=== PATIENT | male | born 1975 | race Caucasian/White ===

== ENCOUNTER 2017-03-23 08:57 | Observation (INO) | payer BC ==
[~2017-03-23] VITALS: Ht 180.3 cm; Wt 107.7 kg
[2017-03-23] MEDS ORDERED: ASPI81TA85 PO (09:04)
[2017-03-23] MEDS: NS 1,000 ML IV SCH ×2 (09:24→19:13)
[2017-03-23 09:34] LABS: BASO # 0.1 10^3/uL (0.0-0.2); BASO % 0.5 % (0.0-1.0); EOS % 0.2 % (0.0-3.0); IMMATURE GRANULOCYTE % 0.8 % (0-0); LYMPH # 1.6 10^3/uL (1.5-4.5); LYMPH % 11.9 % (24.0-44.0); MEAN CORPUSCULAR HEMOGLOBIN 28.7 pg (27.0-33.0); MEAN CORPUSCULAR HGB CONC 34.1 g/dl (32.0-36.5); MEAN CORPUSCULAR VOLUME 84.3 fl (80.0-96.0); MONO # 0.7 10^3/uL (0.0-0.8); MONO % 5.5 % (0.0-5.0); NEUTROPHILS # 10.6 10^3/uL (1.8-7.7); NEUTROPHILS % 81.1 % (36.0-66.0); PLATELET COUNT, AUTOMATED 391 10^3/uL (150-450); RED CELL DISTRIBUTION WIDTH 12.2 % (11.5-14.5)
[2017-03-23] MEDS ORDERED: MORPHINE 4 MG/ML 1ML SYRINGE IV ONE (09:45)
[2017-03-23] MEDS ORDERED: ONDANSETRON 4MG/2ML VIAL (J2405) IV ONE (09:45)
[2017-03-23 09:49] LABS: INR 0.93
[2017-03-23 10:02] LABS: ALKALINE PHOSPHATASE 108 U/L (45-117); ALT/SGPT 37 U/L (12-78); ANION GAP 14 MEQ/L (8-16); AST/SGOT 14 U/L (7-37); BILIRUBIN,DIRECT 0.2 MG/DL (0.0-0.2); BILIRUBIN,TOTAL 0.7 MG/DL (0.2-1.0); BLOOD UREA NITROGEN 14 MG/DL (7-18); CALCIUM LEVEL 9.9 MG/DL (8.5-10.1); CARBON DIOXIDE LEVEL 22 MEQ/L (21-32); CHLORIDE LEVEL 100 MEQ/L (98-107); CREATININE FOR GFR 0.94 MG/DL (0.70-1.30); GLOMERULAR FILTRATION RATE > 60.0 (>60); GLUCOSE, FASTING 180 MG/DL (70-105); POTASSIUM SERUM 3.7 MEQ/L (3.5-5.1); SODIUM LEVEL 136 MEQ/L (136-145); TOTAL PROTEIN 9.2 GM/DL (6.4-8.2)
[2017-03-23 10:03] LABS: ALBUMIN 4.7 GM/DL (3.2-5.2); ALBUMIN/GLOBULIN RATIO 1.04 (1.00-1.93)
--- NOTE | 2017-03-23 10:04 | REP ---
Portable chest x-ray: Single view. History: Abdomen pain. Comparison study: March 31, 2011. Findings: There is some linear pleuroparenchymal fibrosis in the left base unchanged. The right lateral pleural angle is excluded from the imaging field of view. Lung cheek are otherwise clear. Heart is not enlarged. Pulmonary vasculature is not increased. EKG monitoring electrodes overlie the chest. No bony abnormality is seen. Impression: Pleuroparenchymal fibrosis left base. Otherwise no acute disease. Signed by Edwin Pride MD 03/23/2017 03:57 P
[2017-03-23] MEDS ORDERED: ISOVUE-370 76% 100ML VIAL (Q9967) As Ordered ONE (10:28)
--- NOTE | 2017-03-23 11:44 | REP ---
CT chest with IV but without oral contrast: History: Abdomen pain. CT contrast dose: 100 ml of Isovue [address] findings: Digital preliminary deputy court radiograph demonstrates an unremarkable bowel gas pattern. There is a calcific opacity projecting at the lower pole of the right kidney. Axial CT images demonstrate moderate linear fibrotic changes in the left base involving the lingula and left lower lobe. No pleural effusion is seen. The liver and the spleen are normal in size, homogeneous in texture. There is a tiny accessory splenule. No adrenal lesion is seen on either side. The pancreas is unremarkable. No gallbladder abnormality is seen. Coronary artery stent material is visible along the left heart border. There are two intrarenal calculi in the lower pole of the right kidney. The largest of these is 6 mm. No hydronephrosis is seen. No intrarenal calculus is noted on the left. There is a small cyst in the left mid kidney posteromedially. Normal caliber aorta. No retroperitoneal mass or adenopathy is seen. Urinary bladder, seminal vesicles, and prostate gland are unremarkable. Small and large intestinal bowel loops are normal in the abdomen and pelvis. There are multiple foci of slightly opaque ingested material in the small and large intestine, question antacids. No bony destructive lesion is seen. No abdominal wall defect is observed. Normal appendix is seen at the lower edge of the liver. Impression: 1. Intrarenal nephrolithiasis lower pole right kidney without hydronephrosis. 2. No other significant abdominal abnormality. Normal appendix seen. Signed by Edwin Pride MD 03/23/2017 03:59 P
[2017-03-23] MEDS ORDERED: SODIUM CHLORIDE 0.9% 1000 ML IV ONE (12:00)
[2017-03-23] MEDS ORDERED: ATOR40TA75 PO (12:16)
[2017-03-23] MEDS ORDERED: FLUO20CA19 PO (12:16)
[2017-03-23] MEDS: MORPHINE 4 MG/ML 1ML SYRINGE IV PRN (12:17)
[2017-03-23] MEDS ORDERED: BRIL90TA PO (12:22)
[2017-03-23] MEDS ORDERED: ACETAMINOPHEN TAB 650MG DOSE (2X325MG) PO PRN (12:30)
[2017-03-23] MEDS ORDERED: NORCO, ANEXSIA 5/325MG TABLET (HYDROcodone/ACETAMINOPHEN) PO PRN (12:30)
[2017-03-23] MEDS ORDERED: ONDANSETRON 4MG/2ML VIAL (J2405) IV PRN (12:30)
[2017-03-23] MEDS ORDERED: KETOROLAC 30 MG/ML VIAL (J1885) IV PRN (12:30)
[2017-03-23] MEDS ORDERED: ATOR80TA59 PO (12:33)
[2017-03-23] MEDS ORDERED: MORP-38 PO (12:44)
[2017-03-23] MEDS ORDERED: ZOLP10TA2 PO (12:44)
[2017-03-23] MEDS ORDERED: HYDR-3719 PO (12:44)
--- NOTE | 2017-03-23 13:12 | REP ---
RIGHT UPPER QUADRANT ULTRASOUND: Real-time sonographic evaluation of the right upper quadrant performed. The study is somewhat limited due to patient body habitus and bowel gas. The gallbladder demonstrates no evidence of intraluminal sludge or calculi, wall thickening or pericholecystic fluid. There is no intrahepatic or extrahepatic biliary dilatation, common bile duct measuring 4 mm in diameter. Liver and pancreas demonstrate no gross abnormality. Right kidney demonstrates no hydronephrosis with normal size at 12 cm in length. A 6 mm intrarenal calculus is seen inferiorly in the right renal collecting system. IMPRESSION: Right renal calculus. Otherwise negative right upper quadrant ultrasound. Signed by Del Land MD 03/24/2017 09:02 A
[2017-03-23] MEDS: PANTOPRAZOLE 40MG INJ (PROTONIX) (C9113) IV SCH (13:52)
[2017-03-23] MEDS: LR 1,000 ML IV SCH ×2 (13:52→21:37)
--- NOTE | 2017-03-23 14:01 | HPEPDOC ---
General Surgery H&P Date of Admission Mar 23, 2017 Attending Physician: SAJAN VARGHESE MD History and Physical CHIEF COMPLAINT: abdominal pain HISTORY OF PRESENT ILLNESS: Patient presents to the ER with sudden onset of periumbilical pain radiating to the left side of his abdomen that woke him up at approximately 3 morning. This is associated with multiple episodes of vomiting. Patient also was able to have one normal bowel movement. Denies any bleeding with bowel movements. Pain persisted throughout the morning prompting the visit to the emergency room. Patient denies any prodromal symptoms tonight prior. He ate regular daily at 8:30 in the evening and slept at about 11:30 last night feeling his normal self. He denies any sick contacts. He denies any prior episodes of similar symptoms. He reports he has had kidney stones passed but pain felt different. Patient is also not able to get into comfortable position during the episode. ALLERGIES: Please see below. HOME MEDICATIONS: Please see below. PAST MEDICAL HISTORY: 1. Coronary artery disease status post cardiac stenting 02/2017 2. Diabetes 3. Back pain/sciatica 4. Hypercholesterolemia 5. History of diverticulitis 6. History of colon polyps. 7. History of kidney stones PAST SURGICAL HISTORY: 1. Multiple colonoscopies with polypectomy last one was in 2013 2. Coronary angiogram with cardiac stenting (2016) PERSONAL/SOCIAL HISTORY: Denies smoking, alcohol use, or recreational drug use. REVIEW OF SYSTEMS: GENERAL: Denies chills, fatigue, fever, weight gain and weight loss. Patient was in his normal health prior to this episode HEENT: Denies blurred vision and double vision. Denies ear symptoms. Denies hoarseness. NECK: Denies any neck pain. CARDIOVASCULAR: Denies chest pain and palpitations. MUSCULOSKELETAL: Denies arthralgias, back pain and thrombophlebitis. SKIN: Denies rash. NEUROLOGIC: Denies headache, stroke and transient ischemic attack. PSYCHIATRIC: Denies anxiety and depression. ENDOCRINE: Denies thyroid disease. HEMATOLOGY/ONCOLOGY: Denies any bleeding or clotting disorder. HEART: Denies any chest pains, palpitations, paroxysmal dyspnea, orthopnea. Recent cardiac catheterization PULMONARY: Denies chronic cough, dyspnea and wheezing. GASTROINTESTINAL: Denies rectal bleeding, family history of colon cancer, constipation, diarrhea, dysphagia, heartburn and jaundice. GENITOURINARY: Denies dysuria, frequency, hematuria and nocturia. ENDOCRINE: Denies polydipsia, polyphagia, polyuria, heat or cold intolerance. INFECTIOUS: Denies any recent upper respiratory tract infection, UTI, need for use of antibiotics. NUTRITION: Reports good appetite. PHYSICAL EXAMINATION: VITAL SIGNS: Please see below. GENERAL APPEARANCE: Patient seen at bedside, appears comfortable. Awake, alert, oriented. HEENT: Normocephalic, atraumatic. [place] palpebral conjunctivae. Anicteric sclerae. Lips moist. CHEST: No chest wall abnormalities. Normal respiratory motion/effort. NECK: Supple. No thyromegaly. No lymphadenopathies. LUNGS: Lung sounds are clear to auscultation bilaterally. No wheezing appreciated. HEART: No chest wall abnormalities. Heart rate and rhythm are regular with no murmurs. ABDOMEN: Abdomen is obese, soft, nondistended. No surgical scars. No umbilical or groin herniation. Nontender on palpation throughout the whole of the abdomen EXTREMITIES: Extremities have no deformities. No edema identified. NEUROLOGICAL: . ANCILLARIES: . LABORATORY DATA: Please see below. MICROBIOLOGY: Please see below. IMAGING: CT abdomen and pelvis 1. Intrarenal nephrolithiasis lower pole right kidney without hydronephrosis. 2. No other significant abdominal abnormality. Normal appendix seen. Right Upper Quadrant US Right renal calculus. Otherwise negative right upper quadrant ultrasound. IMPRESSION AND PLAN: Abdominal Pain with slight lactic acidemia possiblysecondary to dehydration Etiology of the pain right now is unclear. Imaging studies and clinical exam non focal. ED doctor was concerned about level of lactic acidemia. He did have one episode of vomiting early this morning. Given he has significant cardiovascular risk factors, concern is for early bowel ischemia. I reviewed the CT which was done with IV contrast and the celiac , SMA vessels are intact without any evidence of thrombus or emboli. I will admit him for observationa nd continue IVF hydration for now. I will repeat the labs at 4 pm and if this has improved will start him on a diet. Vital Signs Vital Signs Date Time Temp Pulse Resp B/P (MAP) Pulse Ox O2 Delivery O2 Flow Rate FiO2 03/23/17 13:52 18 03/23/17 13:32 72 03/23/17 12:32 156/81 (106) 03/23/17 12:17 97.7 97 Room Air I&Os I&O- Last 24 Hours up to 6 AM 03/24/17 06:01 Intake Total 300 ml Balance 300 ml Laboratory Data Labs 24H Laboratory Tests 2 03/23/17 09:21: Immature Granulocyte % (Auto) 0.8H, White Blood Count 13.0H, Red Blood Count 5.67, Hemoglobin 16.3, Hematocrit 47.8, Mean Corpuscular Volume 84.3, Mean Corpuscular Hemoglobin 28.7, Mean Corpuscular Hemoglobin Concent 34.1, Red Cell Distribution Width 12.2, Platelet Count 391, Neutrophils (%) (Auto) 81.1H, Lymphocytes (%) (Auto) 11.9L, Monocytes (%) (Auto) 5.5H, Eosinophils (%) (Auto) 0.2, Basophils (%) (Auto) 0.5, Neutrophils # (Auto) 10.6H, Lymphocytes # (Auto) 1.6, Monocytes # (Auto) 0.7, Eosinophils # (Auto) 0.0, Basophils # (Auto) 0.1, Immature Granulocyte # (Auto) 0.1H, Nucleated Red Blood Cells % (auto) 0.0, Prothrombin Time 12.5, Prothromb Time International Ratio 0.93, Anion Gap 14, Glomerular Filtration Rate > 60.0, Lactic Acid Level 3.8*H, Calcium Level 9.9, Aspartate Amino Transf (AST/SGOT) 14, Alanine Aminotransferase (ALT/SGPT) 37, Alkaline Phosphatase 108, Total Bilirubin 0.7, Direct Bilirubin 0.2, Total Creatine Kinase 72, Creatine Kinase MB 1.0, Creatine Kinase MB Relative Index 1.38, Troponin I < 0.02, Total Protein 9.2H, Albumin 4.7, Albumin/Globulin Ratio 1.04, Lipase 253 03/23/17 11:07: Bedside Glucose (Misc Panel) 123H CBC/BMP Laboratory Tests 03/23/17 09:21 Red Blood Count 5.67, Mean Corpuscular Volume 84.3, Mean Corpuscular Hemoglobin 28.7, Mean Corpuscular Hemoglobin Concent 34.1, Red Cell Distribution Width 12.2 , Neutrophils (%) (Auto) 81.1 H, Lymphocytes (%) (Auto) 11.9 L, Monocytes (%) ( Auto) 5.5 H, Eosinophils (%) (Auto) 0.2, Basophils (%) (Auto) 0.5, Neutrophils # (Auto) 10.6 H, Lymphocytes # (Auto) 1.6, Monocytes # (Auto) 0.7, Eosinophils # (Auto) 0.0, Basophils # (Auto) 0.1 Home Medications Scheduled Aspirin (Aspir-81) 81 Mg Tab, 81 MG PO DAILY, (Reported) Atorvastatin Calcium (Atorvastatin Calcium) 80 Mg Tab, 80 MG PO QPM, (Reported) Fluoxetine Hcl (Fluoxetine HCl) 20 Mg Cap, 20 MG PO QHS, (Reported) Morphine Sulfate (Morphine Sulfate ER) 15 Mg Tab, 15 MG PO BID, (Reported) Ticagrelor Base (Brilinta) 90 Mg Tab, 90 MG PO BID, (Reported) Zolpidem Tartrate (Zolpidem Tartrate) 10 Mg Tab, 10 MG PO QHS, (Reported) Scheduled PRN Acetaminophen/Hydrocodone (Hydrocodone/Acetaminophen 10-325 mg) 1 Tab Tab, 1 TAB PO Q6H PRN for PAIN, (Reported) Allergies Coded Allergies: No Known Allergies (Unverified , 03/23/17) SAJAN VARGHESE MD Mar 23, 2017 14:01
[2017-03-23] MEDS: TICAGRELOR 90 MG TABLET (BRILINTA) PO SCH ×2 (15:35→21:37)
[2017-03-23 16:07] LABS: BASO % 0.3 % (0.0-1.0); EOS % 0.2 % (0.0-3.0); IMMATURE GRANULOCYTE % 0.3 % (0-0); LYMPH # 2.5 10^3/uL (1.5-4.5); LYMPH % 19.8 % (24.0-44.0); MEAN CORPUSCULAR HEMOGLOBIN 29.3 pg (27.0-33.0); MEAN CORPUSCULAR HGB CONC 33.6 g/dl (32.0-36.5); MONO # 1.2 10^3/uL (0.0-0.8); MONO % 9.2 % (0.0-5.0); NEUTROPHILS # 8.8 10^3/uL (1.8-7.7); NEUTROPHILS % 70.2 % (36.0-66.0); PLATELET COUNT, AUTOMATED 334 10^3/uL (150-450); RED CELL DISTRIBUTION WIDTH 12.3 % (11.5-14.5); WHITE BLOOD COUNT 12.5 10^3/uL (4.0-10.0)
[2017-03-23 16:26] LABS: ALBUMIN 3.7 GM/DL (3.2-5.2); ALBUMIN/GLOBULIN RATIO 1.28 (1.00-1.93); ALKALINE PHOSPHATASE 85 U/L (45-117); ALT/SGPT 29 U/L (12-78); ANION GAP 9 MEQ/L (8-16); AST/SGOT 11 U/L (7-37); BILIRUBIN,TOTAL 0.5 MG/DL (0.2-1.0); BLOOD UREA NITROGEN 9 MG/DL (7-18); CALCIUM LEVEL 8.4 MG/DL (8.5-10.1); CARBON DIOXIDE LEVEL 26 MEQ/L (21-32); CHLORIDE LEVEL 107 MEQ/L (98-107); CREATININE FOR GFR 0.65 MG/DL (0.70-1.30); GLOMERULAR FILTRATION RATE > 60.0 (>60); GLUCOSE, FASTING 113 MG/DL (70-105); POTASSIUM SERUM 4.1 MEQ/L (3.5-5.1); SODIUM LEVEL 142 MEQ/L (136-145); TOTAL PROTEIN 6.6 GM/DL (6.4-8.2)
[2017-03-23 16:30] VITALS: BP 168/88
[2017-03-23] MEDS ORDERED: zolPIDEM TARTRATE 5 MG TAB PO PRN (17:15)
[2017-03-23 20:00] VITALS: BP 152/83
[2017-03-23] MEDS ORDERED: ATORVASTATIN 20 MG TAB PO SCH (21:00)
[2017-03-23] MEDS ORDERED: FLUoxetine 20 MG CAP PO SCH (21:00)
--- NOTE | 2017-03-23 21:15 | ECGEPIP ---
Stationary ECG Study [facility] - ED Test Date: 2017-03-23 Pat Name: MICHAELA HANKINS Department: Room: - Gender: M Cleaning Team Member: sol : 1975 Requested By: Sejal Reynaga Order Number: [id number] Reading MD: Sejal Reynaga Measurements Intervals [place] Rate: 80 P: 42 [place]: 138 QRS: -28 QRSD: 101 T: 12 QT: 373 QTc: 433 Interpretive Statements SINUS RHYTHM BORDERLINE LEFT AXIS DEVIATION ?PRIOR INFERIOR INFARCT BASELINE ARTIFACT LIMITS INTERPRETATION Electronically Signed On 03-23-2017 21:15:13 EST by Sejal Reynaga
[2017-03-24] VITALS: BP 170/87
[2017-03-24] MEDS: NORCO, ANEXSIA 5/325MG TABLET (HYDROcodone/ACETAMINOPHEN) PO PRN ×2 (04:18→10:20)
[2017-03-24] MEDS: LR 1,000 ML IV SCH ×2 (04:18→11:34)
[2017-03-24 05:00] VITALS: BP 161/82
[2017-03-24] MEDS: MORPHINE 4 MG/ML 1ML SYRINGE IV PRN (05:02)
[2017-03-24] MEDS: NS 1,000 ML IV SCH (05:13)
[2017-03-24 08:00] VITALS: BP 152/90
[2017-03-24 08:31] LABS: BASO # 0.1 10^3/uL (0.0-0.2); BASO % 0.4 % (0.0-1.0); EOS # 0.1 10^3/uL (0.0-0.50); EOS % 0.8 % (0.0-3.0); IMMATURE GRANULOCYTE % 0.2 % (0-0); LYMPH # 2.9 10^3/uL (1.5-4.5); MEAN CORPUSCULAR HEMOGLOBIN 29.3 pg (27.0-33.0); MEAN CORPUSCULAR HGB CONC 33.4 g/dl (32.0-36.5); MEAN CORPUSCULAR VOLUME 87.6 fl (80.0-96.0); MONO # 1.1 10^3/uL (0.0-0.8); MONO % 9.5 % (0.0-5.0); NEUTROPHILS # 7.4 10^3/uL (1.8-7.7); NEUTROPHILS % 64.1 % (36.0-66.0); PLATELET COUNT, AUTOMATED 306 10^3/uL (150-450); RED CELL DISTRIBUTION WIDTH 12.4 % (11.5-14.5); WHITE BLOOD COUNT 11.6 10^3/uL (4.0-10.0)
[2017-03-24] MEDS: PANTOPRAZOLE 40MG INJ (PROTONIX) (C9113) IV SCH (08:36)
[2017-03-24 08:56] LABS: ALBUMIN 3.3 GM/DL (3.2-5.2); ALKALINE PHOSPHATASE 82 U/L (45-117); ALT/SGPT 26 U/L (12-78); ANION GAP 6 MEQ/L (8-16); AST/SGOT 12 U/L (7-37); BILIRUBIN,TOTAL 0.4 MG/DL (0.2-1.0); BLOOD UREA NITROGEN 7 MG/DL (7-18); CALCIUM LEVEL 8.3 MG/DL (8.5-10.1); CARBON DIOXIDE LEVEL 26 MEQ/L (21-32); CHLORIDE LEVEL 107 MEQ/L (98-107); CREATININE FOR GFR 0.61 MG/DL (0.70-1.30); GLOMERULAR FILTRATION RATE > 60.0 (>60); GLUCOSE, FASTING 124 MG/DL (70-105); POTASSIUM SERUM 4.4 MEQ/L (3.5-5.1); SODIUM LEVEL 139 MEQ/L (136-145); TOTAL PROTEIN 6.3 GM/DL (6.4-8.2)
[2017-03-24] MEDS ORDERED: JANU100T PO (09:59)
[2017-03-24] MEDS ORDERED: METF-415 PO (09:59)
[2017-03-24] MEDS: TICAGRELOR 90 MG TABLET (BRILINTA) PO SCH (10:19)
[2017-03-24 12:00] VITALS: BP 138/79
== END 2017-03-24 12:30 | disposition home or self-care (01) ==
LOC: M ED 08:57 → M ED INP 12:26 → M PED 16:30
PROVIDERS: ADMIT Surgery; ATTEND Surgery
DX: R10.9 Unspecified abdominal pain (principal); I25.10 Atherosclerotic heart disease of native coronary artery without angina pectoris; E11.9 Type 2 diabetes mellitus without complications; M54.30 Sciatica, unspecified side; E78.00 Pure hypercholesterolemia, unspecified; K57.30 Diverticulosis of large intestine without perforation or abscess without bleeding; Z86.010 Personal history of colon polyps; Z87.442 Personal history of urinary calculi; Z98.61 Coronary angioplasty status; Z79.82 Long term (current) use of aspirin; Z79.899 Other long term (current) drug therapy
CPT/HCPCS: 36415; 71010; 74177; 76705; 80053; 82550; 82553; 83605; 83690; 85025; 85610; 86140; 86850; 93005; 93041; 96374; 96375; 96376; 99285; C9113; J1885; J2405; Q9967

== ENCOUNTER → 2019-08-10 | Outpatient (CLI) | payer BC ==
[~2019-08-10] MED LIST: ASPI81TA85 PO; ATOR40TA75 PO; ATOR80TA59 PO; BRIL90TA PO; FLUO20CA22 PO; HYDR-3719 PO; JANU100T PO; METF-415 PO; MORP-69 PO; ZOLP10TA2 PO
[2019-08-10 14:21] LABS: ALBUMIN 3.6 GM/DL (3.2-5.2); ALT/SGPT 26 U/L (12-78); BILIRUBIN,TOTAL 0.3 MG/DL (0.2-1.0); BLOOD UREA NITROGEN 7 MG/DL (7-18); CALCIUM LEVEL 9.4 MG/DL (8.5-10.1); CARBON DIOXIDE LEVEL 27 MEQ/L (21-32); CHLORIDE LEVEL 106 MEQ/L (98-107); CHOLESTEROL LEVEL 123 MG/DL (<200); CHOLESTEROL RISK RATIO 3.843 (<5); CREATININE FOR GFR 0.62 MG/DL (0.70-1.30); GLOMERULAR FILTRATION RATE > 60.0 (>60); GLUCOSE, FASTING 156 MG/DL (70-100); HDL CHOLESTEROL 32 MG/DL (>40); LDL CHOLESTEROL 62 MG/DL (<100); NON-HDL-C 91 MG/DL; POTASSIUM SERUM 4.9 MEQ/L (3.5-5.1); SODIUM LEVEL 140 MEQ/L (136-145); TOTAL PROTEIN 6.5 GM/DL (6.4-8.2); TRIGLYCERIDES LEVEL 147 MG/DL (<150)
[2019-08-10 14:35] LABS: HEMOGLOBIN A1c 10.6 %
[2019-08-10 14:39] LABS: BASO # 0.1 10^3/uL (0.0-0.2); EOS # 0.1 10^3/uL (0.0-0.5); EOS % 1.5 % (0.0-3.0); HEMATOCRIT 47.3 % (42.0-52.0); HEMOGLOBIN 15.1 g/dl (13.5-17.5); LYMPH # 2.3 10^3/uL (1.5-5.0); LYMPH % 25.8 % (24.0-44.0); MEAN CORPUSCULAR HGB CONC 31.9 g/dl (32.0-36.5); MEAN CORPUSCULAR VOLUME 90.8 fl (80.0-96.0); MONO # 0.7 10^3/uL (0.0-0.8); MONO % 8.3 % (0.0-5.0); NEUTROPHILS # 5.5 10^3/uL (1.5-8.5); NEUTROPHILS % 63.1 % (36.0-66.0); PLATELET COUNT, AUTOMATED 295 10^3/uL (150-450); RED BLOOD COUNT 5.21 10^6/uL (4.30-6.10); WHITE BLOOD COUNT 8.8 10^3/uL (4.0-10.0)
== END ==
LOC: M WUC 10:46
DX: E11.65 Type 2 diabetes mellitus with hyperglycemia (principal); D72.829 Elevated white blood cell count, unspecified

== ENCOUNTER → 2019-11-22 | Emergency (ER) | payer BC ==
[~2019-11-22] MED LIST changes: -ASPI81TA85 PO; +ASPI81TA86 PO; +ASPIRIN 325 MG TAB As Ordered ONE; +ASPIRIN 325 MG TAB ONE; +HYDR-3713 PO; +JARD1TAB PO; +METH20TA29 PO; +NORC1TAB7 PO; +REGL10TA6 PO
--- NOTE | 2019-12-25 15:36 | ECGEPIP ---
[facility] - ED Test Date: 2019-11-22 Pat Name: MICHAELA HANKINS Department: Room: - Gender: Male Customer Relationship Specialist: tomasz : 1975 Requested By: FRAN Pinzon Order Number: [id number] Reading MD: Sejal Reynaga Measurements Intervals [place] Rate: 61 P: 16 PA: 155 QRS: -17 QRSD: 101 T: -5 QT: 403 QTc: 407 Interpretive Statements SINUS RHYTHM NORMAL ECG PROBABLE PRIOR INFERIOR INFARCT SEE SCANNED DOWNTIME REPORT
--- NOTE | 2019-12-29 07:59 | ECGEPIP ---
SINUS RHYTHM MARKED LEFT AXIS DEVIATION NO PREVIOUS TO COMPARE SEE SCANNED DOWNTIME REPORT MTDD
[2020-01-09 09:03] LABS: D-DIMER QUANT < 270 ng/ml (<500); INR 0.99; PARTIAL THROMBOPLASTIN TIME 28.3 SECONDS (24.2-38.5); PROTHROMBIN TIME 13.3 SECONDS (12.5-14.3)
[2020-01-10 20:40] LABS: BASO # 0.1 10^3/uL (0.0-0.2); BASO % 0.7 % (0.0-1.0); EOS # 0.2 10^3/uL (0.0-0.5); EOS % 1.3 % (0.0-3.0); HEMATOCRIT 47.6 % (42.0-52.0); HEMOGLOBIN 15.4 g/dl (13.5-17.5); LYMPH # 3.8 10^3/uL (1.5-5.0); LYMPH % 30.1 % (24.0-44.0); MEAN CORPUSCULAR HEMOGLOBIN 28.5 pg (27.0-33.0); MEAN CORPUSCULAR HGB CONC 32.4 g/dl (32.0-36.5); MONO # 0.9 10^3/uL (0.0-0.8); MONO % 7.5 % (0.0-5.0); NEUTROPHILS # 7.6 10^3/uL (1.5-8.5); NEUTROPHILS % 60.1 % (36.0-66.0); PLATELET COUNT, AUTOMATED 292 10^3/uL (150-450); RED BLOOD COUNT 5.41 10^6/uL (4.30-6.10); WHITE BLOOD COUNT 12.6 10^3/uL (4.0-10.0)
[2020-02-14 04:45] LABS: ALBUMIN 3.9 GM/DL (3.2-5.2); ALT/SGPT 27 U/L (12-78); BILIRUBIN,TOTAL 0.4 MG/DL (0.2-1.0); BLOOD UREA NITROGEN 9 MG/DL (7-18); CALCIUM LEVEL 9.2 MG/DL (8.5-10.1); CARBON DIOXIDE LEVEL 30 MEQ/L (21-32); CHLORIDE LEVEL 104 MEQ/L (98-107); CK-MB VALUE MASS < 1.0 NG/ML (<3.6); CPK CREATINE PHOSPHOKINASE 65 U/L (39-308); GLOMERULAR FILTRATION RATE > 60.0 (>60); GLUCOSE, FASTING 173 MG/DL (70-100); MAGNESIUM LEVEL 2.2 MG/DL (1.8-2.4); MB/CK RELATIVE INDEX 1.54 (< OR =4); POTASSIUM SERUM 4.2 MEQ/L (3.5-5.1); SODIUM LEVEL 138 MEQ/L (136-145); THYROID STIMULATING HORMONE 0.577 uIU/ML (0.358-3.740); TOTAL PROTEIN 6.9 GM/DL (6.4-8.2); TROPONIN I < 0.02 NG/ML (< 0.10)
== END | disposition home or self-care (01) ==
LOC: M ED 12:16
DX: R07.9 Chest pain, unspecified (principal); E11.9 Type 2 diabetes mellitus without complications; I25.10 Atherosclerotic heart disease of native coronary artery without angina pectoris; I25.2 Old myocardial infarction; Z95.5 Presence of coronary angioplasty implant and graft; F17.200 Nicotine dependence, unspecified, uncomplicated; Z79.82 Long term (current) use of aspirin; Z79.899 Other long term (current) drug therapy; Z79.02 Long term (current) use of antithrombotics/antiplatelets

== ENCOUNTER 2020-01-19 17:52 | Emergency (ER) | payer BC ==
[~2020-01-19] VITALS: Ht 180.3 cm; Wt 102.7 kg
[~2020-01-19 17:52] MED LIST changes: -ASPIRIN 325 MG TAB As Ordered ONE; -ASPIRIN 325 MG TAB ONE; -HYDR-3713 PO; -JARD1TAB PO; -METH20TA29 PO; -NORC1TAB7 PO; -REGL10TA6 PO
[2020-01-19] MEDS ORDERED: JARD1TAB PO (18:01)
[2020-01-19] MEDS ORDERED: METH20TA29 PO (18:02)
[2020-01-19 18:36] LABS: BASO # 0.1 10^3/uL (0.0-0.2); BASO % 0.5 % (0.0-1.0); EOS # 0.2 10^3/uL (0.0-0.5); HEMATOCRIT 48.7 % (42.0-52.0); HEMOGLOBIN 15.6 g/dl (13.5-17.5); LYMPH # 2.9 10^3/uL (1.5-5.0); LYMPH % 15.2 % (24.0-44.0); MEAN CORPUSCULAR HEMOGLOBIN 27.9 pg (27.0-33.0); MONO # 1.9 10^3/uL (0.0-0.8); MONO % 9.8 % (0.0-5.0); NEUTROPHILS # 14.1 10^3/uL (1.5-8.5); NEUTROPHILS % 72.9 % (36.0-66.0); PLATELET COUNT, AUTOMATED 294 10^3/uL (150-450); WHITE BLOOD COUNT 19.3 10^3/uL (4.0-10.0)
[2020-01-19 19:04] LABS: BLOOD UREA NITROGEN 12 MG/DL (7-18); CALCIUM LEVEL 9.6 MG/DL (8.5-10.1); CARBON DIOXIDE LEVEL 26 MEQ/L (21-32); CHLORIDE LEVEL 103 MEQ/L (98-107); CK-MB VALUE MASS < 1.0 NG/ML (<3.6); CPK CREATINE PHOSPHOKINASE 83 U/L (39-308); CREATININE FOR GFR 0.71 MG/DL (0.70-1.30); GLOMERULAR FILTRATION RATE > 60.0 (>60); GLUCOSE, FASTING 252 MG/DL (70-100); POTASSIUM SERUM 4.3 MEQ/L (3.5-5.1); SODIUM LEVEL 136 MEQ/L (136-145); TROPONIN I < 0.02 NG/ML (< 0.10)
--- NOTE | 2020-01-19 19:06 | REPVR ---
PROCEDURE INFORMATION: Exam: XR Chest, 1 View Exam date and time: 01/19/2020 6:21 PM Age: 44 years old Clinical indication: Shortness of breath; Additional info: Chest pain TECHNIQUE: Imaging protocol: XR of the chest Views: 1 view. COMPARISON: 1. CR Chest, 1 view 11/22/2019 6:07 PM 2. [place] Chest, 1 view 03/23/2017 9:21:15 AM FINDINGS: Lungs: There are linear densities in the left mid lung zone, which may represent scarring or atelectasis. No lung consolidation or pulmonary edema is noted. Pleural space: Unremarkable. No pleural effusion or pneumothorax is identified. Heart/Mediastinum: Unremarkable. No cardiomegaly. Bones/joints: Unremarkable. IMPRESSION: No radiographic evidence for an acute cardiopulmonary process. Electronically signed by: Clement Matute On 01/19/2020 19:06:08 PM
[2020-01-19] MEDS ORDERED: GI COCKTAIL 50ML BTL(HYOSCYAMINE/MAALOX/LIDOCAINE VISCOUS)(1:3:1) PO ONE (19:15)
[2020-01-19 19:23] LABS: ALBUMIN 4.1 GM/DL (3.2-5.2); ALT/SGPT 27 U/L (12-78); AMYLASE 47 U/L (25-115); BILIRUBIN,DIRECT 0.1 MG/DL (0.0-0.2); BILIRUBIN,TOTAL 0.4 MG/DL (0.2-1.0); LIPASE 522 U/L (73-393); TOTAL PROTEIN 7.5 GM/DL (6.4-8.2)
[2020-01-19] MEDS ORDERED: KETOROLAC 30 MG/ML 1ML VIAL IV ONE (19:45)
[2020-01-19] MEDS ORDERED: METOCLOPRAMIDE INJ 10MG/2ML VIAL (J2765 PER 1) IV ONE (19:45)
[2020-01-19 19:46] VITALS: BP 174/98
[2020-01-19] MEDS ORDERED: REGL10TA6 PO (21:14)
[2020-01-19] MEDS ORDERED: NORC1TAB7 PO (21:14)
[2020-01-19] MEDS ORDERED: NORCO 5/325MG TABLET (BULK FOR ED) PO ONE (21:15)
--- NOTE | 2020-01-20 06:44 | ECGEPIP ---
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
[2020-01-20] MEDS ORDERED: HYDR-3713 PO (07:21)
== END 2020-01-19 21:35 | disposition home or self-care (01) ==
LOC: M ED 17:52
DX: K85.90 Acute pancreatitis without necrosis or infection, unspecified (principal); R00.0 Tachycardia, unspecified; I51.9 Heart disease, unspecified; E11.9 Type 2 diabetes mellitus without complications; I10 Essential (primary) hypertension; Z95.5 Presence of coronary angioplasty implant and graft; Z79.82 Long term (current) use of aspirin; Z79.84 Long term (current) use of oral hypoglycemic drugs; Z79.899 Other long term (current) drug therapy
CPT/HCPCS: 71045; 80048; 80076; 82150; 82550; 82553; 83690; 84484; 85025; 93005; 93041; 94760; 96374; 96375; 99285; J1885; J2765

== ENCOUNTER → 2020-01-22 | Outpatient (CLI) | payer BC ==
[~2020-01-22] MED LIST changes: +HYDR-3713 PO; +JARD1TAB PO; +METH20TA29 PO; +NORC1TAB7 PO; +REGL10TA6 PO
[2020-01-22 16:31] LABS: APPEARANCE, URINE CLEAR (CLEAR); BACTERIA, URINE AUTO NEGATIVE (NEGATIVE); BILIRUBIN, URINE AUTO NEGATIVE (NEGATIVE); BLOOD, URINE BLOOD NEGATIVE (NEGATIVE); COLOR, URINE YELLOW (YELLOW); GLUCOSE, URINE (UA) AUTO 3+ mg/dL (NEGATIVE); KETONE, URINE AUTO TRACE mg/dL (NEGATIVE); LEUKOCYTE ESTERASE, URINE AUTO NEGATIVE (NEGATIVE); NITRITE, URINE AUTO NEGATIVE (NEGATIVE); PROTEIN, URINE AUTO NEGATIVE (NEGATIVE); RBC, URINE AUTO 1 /HPF (0-3); SPECIFIC GRAVITY URINE AUTO 1.033 (1.002-1.035); SQUAMOUS EPITHELIAL CELL UR AU 0 /HPF (0-6); UROBILINOGEN, URINE AUTO 0.2 mg/dL (0.0-2.0); WBC, URINE AUTO 1 /HPF (0-3)
[2020-01-22 16:35] LABS: BASO # 0.1 10^3/uL (0.0-0.2); BASO % 0.9 % (0.0-1.0); EOS # 0.2 10^3/uL (0.0-0.5); EOS % 2.3 % (0.0-3.0); HEMATOCRIT 48.2 % (42.0-52.0); HEMOGLOBIN 15.1 g/dl (13.5-17.5); LYMPH # 3.3 10^3/uL (1.5-5.0); LYMPH % 31.5 % (24.0-44.0); MEAN CORPUSCULAR HEMOGLOBIN 27.8 pg (27.0-33.0); MEAN CORPUSCULAR HGB CONC 31.3 g/dl (32.0-36.5); MEAN CORPUSCULAR VOLUME 88.8 fl (80.0-96.0); MONO # 0.9 10^3/uL (0.0-0.8); MONO % 8.4 % (0.0-5.0); NEUTROPHILS # 5.9 10^3/uL (1.5-8.5); NEUTROPHILS % 56.5 % (36.0-66.0); PLATELET COUNT, AUTOMATED 289 10^3/uL (150-450); RED BLOOD COUNT 5.43 10^6/uL (4.30-6.10); WHITE BLOOD COUNT 10.5 10^3/uL (4.0-10.0)
[2020-01-22 17:00] LABS: ALBUMIN 3.6 GM/DL (3.2-5.2); ALT/SGPT 19 U/L (12-78); BILIRUBIN,TOTAL 0.3 MG/DL (0.2-1.0); BLOOD UREA NITROGEN 11 MG/DL (7-18); CALCIUM LEVEL 9.4 MG/DL (8.5-10.1); CARBON DIOXIDE LEVEL 31 MEQ/L (21-32); CHLORIDE LEVEL 100 MEQ/L (98-107); CREATININE FOR GFR 0.78 MG/DL (0.70-1.30); GLOMERULAR FILTRATION RATE > 60.0 (>60); GLUCOSE, FASTING 338 MG/DL (70-100); LIPASE 160 U/L (73-393); SODIUM LEVEL 134 MEQ/L (136-145); TOTAL PROTEIN 7.1 GM/DL (6.4-8.2)
[2020-01-22 19:23] LABS: HEMOGLOBIN A1c 10.3 %
== END ==
LOC: M WUC 13:34
PROVIDERS: ATTEND Physician Assistant
DX: K85.90 Acute pancreatitis without necrosis or infection, unspecified (principal)

== ENCOUNTER → 2020-07-10 | Outpatient (CLI) | payer BC ==
--- NOTE | 2020-07-10 17:03 | REPVR ---
PROCEDURE INFORMATION: Exam: CT Lumbar Spine Without Contrast Exam date and time: 07/10/2020 4:51 PM Age: 45 years old Clinical indication: Low back pain. Chronic bilateral low back pain. Degenerative disc disease. TECHNIQUE: Imaging protocol: Computed tomography images of the lumbar spine without contrast. Radiation optimization: All CT scans at this facility use at least one of these dose optimization techniques: automated exposure control; mA and/or kV adjustment per patient size (includes targeted exams where dose is matched to clinical indication); or iterative reconstruction. COMPARISON: No relevant prior studies available. FINDINGS: Vertebrae: Lumbar lordosis is preserved. Vertebral body heights are maintained. Multilevel facet arthropathy. No acute lumbar spine fracture. No measurable spondylolisthesis. Prominent Schmorl's node along the superior endplate of L5. Discs/Spinal canal/Neural foramina: Multilevel degenerative disc height loss and osteophyte formation, most pronounced at L4-L5. Multilevel areas of mild osseous canal stenosis. Mild bilateral osseous foraminal narrowing from L3 through S1. Kidneys and ureters: Nonobstructive caliceal calculi in the partially visualized right kidney, largest measuring 0.6 cm. No hydronephrosis. Soft tissues: Unremarkable. IMPRESSION: 1. Nonobstructive caliceal calculi in the partially visualized right kidney, largest measuring 0.6 cm. No hydronephrosis. 2. Spondylotic changes of the lumbar spine, as above. Electronically signed by: Lionel Horvath On 07/10/2020 17:04:03 PM
--- NOTE | 2020-07-11 07:48 | REP ---
INDICATION: M54.5 CHRONIC BLANK LBP M51.36 DDD LUMBAR REGION. COMPARISON: None. TECHNIQUE: Two frontal radiographs of the thoracolumbar spine. FINDINGS: Mild dextroconvex scoliosis through the thoracic spine measuring less than 8 degrees from the superior endplate of L3 to the superior endplate of T12 cannot be excluded and should be correlated with physical examination. Vertebral bodies are otherwise normal in the frontal projection. No paravertebral soft tissue abnormalities noted. IMPRESSION: Cannot exclude mild dextroconvex scoliosis through the thoracic spine. <Electronically signed by Cristofer Jackson > 07/11/20 [id number]
--- NOTE | 2020-07-11 07:54 | REP ---
INDICATION: M54.5 CHRONIC BLANK LBP M51.36 DDD LUMBAR REGION COMPARISON: None. TECHNIQUE: AP, lateral, flexion/extension, bilateral oblique, and coned-down views. FINDINGS: Frontal radiograph demonstrates some element of levoconvex scoliosis which is not significantly perceptible on the scoliosis series performed at the same time suggesting that this may be positional. However, correlation is required. Lateral view demonstrates normal lordosis without spondylolysis or spondylolisthesis. Moderate multilevel degenerative changes include endplate sclerosis with disc space narrowing and marginal osteophytosis as well as mild hypertrophic facet changes. Findings most pronounced at the L4-5 and L3-4 levels. IMPRESSION: Degenerative changes as noted above. <Electronically signed by Cristofer Jackson > 07/11/20 [id number]
== END ==
LOC: M RAD 16:40
PROVIDERS: ATTEND Physician Assistant Medical
DX: M54.5 Low back pain (principal); M51.36 Other intervertebral disc degeneration, lumbar region; G89.29 Other chronic pain

== ENCOUNTER → 2020-11-07 | Outpatient (CLI) | payer BC ==
[2020-11-07 11:35] LABS: BASO # 0.1 10^3/uL (0.0-0.2); BASO % 0.9 % (0.0-1.0); EOS # 0.1 10^3/uL (0.0-0.5); EOS % 1.9 % (0.0-3.0); HEMATOCRIT 52.6 % (42.0-52.0); HEMOGLOBIN 16.9 g/dl (13.5-17.5); LYMPH % 26.9 % (24.0-44.0); MEAN CORPUSCULAR HEMOGLOBIN 28.2 pg (27.0-33.0); MEAN CORPUSCULAR HGB CONC 32.1 g/dl (32.0-36.5); MEAN CORPUSCULAR VOLUME 87.8 fl (80.0-96.0); MONO # 0.7 10^3/uL (0.0-0.8); MONO % 9.5 % (2.0-8.0); NEUTROPHILS # 4.5 10^3/uL (1.5-8.5); NEUTROPHILS % 60.7 % (36.0-66.0); PLATELET COUNT, AUTOMATED 260 10^3/uL (150-450); RED BLOOD COUNT 5.99 10^6/uL (4.30-6.10); WHITE BLOOD COUNT 7.5 10^3/uL (4.0-10.0)
[2020-11-07 12:07] LABS: HEMOGLOBIN A1c 8.1 %
[2020-11-07 12:13] LABS: ALBUMIN 4.1 GM/DL (3.2-5.2); ALT/SGPT 33 U/L (12-78); AMYLASE 51 U/L (25-115); BILIRUBIN,TOTAL 0.6 MG/DL (0.2-1.0); BLOOD UREA NITROGEN 11 MG/DL (7-18); CALCIUM LEVEL 9.4 MG/DL (8.5-10.1); CARBON DIOXIDE LEVEL 30 MEQ/L (21-32); CHLORIDE LEVEL 105 MEQ/L (98-107); CHOLESTEROL LEVEL 123 MG/DL (<200); CHOLESTEROL RISK RATIO 3.617 (<5); CREATININE FOR GFR 0.61 MG/DL (0.70-1.30); GLOMERULAR FILTRATION RATE > 60.0 (>60); GLUCOSE, FASTING 141 MG/DL (70-100); HDL CHOLESTEROL 34 MG/DL (>40); LDL CHOLESTEROL 57 MG/DL (<100); LIPASE 63 U/L (73-393); MAGNESIUM LEVEL 1.9 MG/DL (1.8-2.4); NON-HDL-C 89 MG/DL; SODIUM LEVEL 138 MEQ/L (136-145); THYROID STIMULATING HORMONE 0.249 uIU/ML (0.358-3.740); TOTAL 25(OH) VITAMIN D 52.4 NG/ML (30.0-100.0); TOTAL PROTEIN 7.2 GM/DL (6.4-8.2); TRIGLYCERIDES LEVEL 162 MG/DL (<150); VITAMIN B12 LEVEL 411 PG/ML (247-911)
[2020-11-07 12:18] LABS: CREATININE, URINE 62.5 MG/DL; MALB URINE SIEMENS 19.3 MG/L; MAU/CREAT RATIO 30.8 MCG/MG (0.0-30.0)
== END ==
LOC: M WUC 08:03
PROVIDERS: ATTEND Internal Medicine
DX: E11.65 Type 2 diabetes mellitus with hyperglycemia (principal); E55.9 Vitamin D deficiency, unspecified; E78.49 Other hyperlipidemia; Z12.5 Encounter for screening for malignant neoplasm of prostate; R11.0 Nausea
CPT/HCPCS: 36415; 80053; 80061; 82043; 82150; 82306; 82607; 83036; 83690; 83735; 84443; 85025; G0103

== ENCOUNTER → 2020-12-27 | Outpatient (CLI) | payer BC ==
--- NOTE | 2020-12-29 00:32 | REPVR ---
PROCEDURE INFORMATION: Exam: CT Maxillofacial Without Contrast, Sinus Exam date and time: 12/27/2020 10:53 AM Age: 45 years old Clinical indication: Maxilla pain; Additional info: Allergic rhinitis, dns TECHNIQUE: Imaging protocol: CT Maxillofacial without contrast. Focus on the sinuses. Radiation optimization: All CT scans at this facility use at least one of these dose optimization techniques: automated exposure control; mA and/or kV adjustment per patient size (includes targeted exams where dose is matched to clinical indication); or iterative reconstruction. COMPARISON: No relevant prior studies available. FINDINGS: Frontal sinuses: Normal. No air-fluid levels. Ethmoid air cells: Normal. No air-fluid levels. Sphenoid sinuses: Normal. No air-fluid levels. Maxillary sinuses: Multiple small bilateral maxillary sinus retention cysts versus polyps. No maxillary sinus mucosal thickening or air-fluid levels. Nasal cavity/Septum: Unremarkable. Orbital cavity: Orbits are normal. Globes are unremarkable. Bones/joints: Osseous spurring of the right aspect of the bony nasal septum. Soft tissues: Unremarkable. IMPRESSION: Multiple small bilateral maxillary sinus retention cysts versus polyps. Electronically signed by: Lionel Horvath On 12/29/2020 00:31:42 AM
== END ==
LOC: M PLAIMG 10:14
PROVIDERS: ATTEND Otolaryngology Otolaryngic Allergy
DX: J30.9 Allergic rhinitis, unspecified (principal); J34.2 Deviated nasal septum

== ENCOUNTER → 2021-08-13 | Outpatient (CLI) | payer BC ==
[2021-08-13 16:39] LABS: BASO # 0.1 10^3/uL (0.0-0.2); EOS # 0.2 10^3/uL (0.0-0.5); EOS % 1.9 % (0.0-3.0); HEMATOCRIT 49.2 % (42.0-52.0); HEMOGLOBIN 15.7 g/dl (13.5-17.5); LYMPH # 3.1 10^3/uL (1.5-5.0); LYMPH % 31.3 % (24.0-44.0); MEAN CORPUSCULAR HGB CONC 31.9 g/dl (32.0-36.5); MEAN CORPUSCULAR VOLUME 90.9 fl (80.0-96.0); MONO # 1.1 10^3/uL (0.0-0.8); NEUTROPHILS # 5.5 10^3/uL (1.5-8.5); NEUTROPHILS % 54.5 % (36.0-66.0); PLATELET COUNT, AUTOMATED 283 10^3/uL (150-450); RED BLOOD COUNT 5.41 10^6/uL (4.30-6.10)
[2021-08-13 16:49] LABS: APPEARANCE, URINE CLEAR (CLEAR); BACTERIA, URINE AUTO NEGATIVE (NEGATIVE); BILIRUBIN, URINE AUTO NEGATIVE (NEGATIVE); BLOOD, URINE BLOOD NEGATIVE (NEGATIVE); COLOR, URINE YELLOW (YELLOW); GLUCOSE, URINE (UA) AUTO 3+ mg/dL (NEGATIVE); KETONE, URINE AUTO NEGATIVE (NEGATIVE); LEUKOCYTE ESTERASE, URINE AUTO NEGATIVE (NEGATIVE); MUCUS, URINE SMALL (NEGATIVE); NITRITE, URINE AUTO NEGATIVE (NEGATIVE); PROTEIN, URINE AUTO NEGATIVE (NEGATIVE); RBC, URINE AUTO 4 /HPF (0-3); SPECIFIC GRAVITY URINE AUTO 1.029 (1.002-1.035); SQUAMOUS EPITHELIAL CELL UR AU 0 /HPF (0-6); UROBILINOGEN, URINE AUTO 0.2 mg/dL (0.0-2.0); WBC, URINE AUTO 1 /HPF (0-3)
[2021-08-13 20:25] LABS: ALBUMIN 3.7 GM/DL (3.2-5.2); ALT/SGPT 27 U/L (12-78); BILIRUBIN,TOTAL 0.3 MG/DL (0.2-1.0); BLOOD UREA NITROGEN 18 MG/DL (7-18); CALCIUM LEVEL 9.9 MG/DL (8.5-10.1); CARBON DIOXIDE LEVEL 28 MEQ/L (21-32); CHLORIDE LEVEL 105 MEQ/L (98-107); CHOLESTEROL LEVEL 205 MG/DL (<200); CHOLESTEROL RISK RATIO 4.555 (<5); FREE T4 0.89 NG/DL (0.76-1.46); GLOMERULAR FILTRATION RATE > 60.0 (>60); GLUCOSE, FASTING 164 MG/DL (70-100); HDL CHOLESTEROL 45 MG/DL (>40); LDL CHOLESTEROL 133 MG/DL (<100); MAGNESIUM LEVEL 2.5 MG/DL (1.8-2.4); NON-HDL-C 160 MG/DL; POTASSIUM SERUM 4.8 MEQ/L (3.5-5.1); SODIUM LEVEL 140 MEQ/L (136-145); THYROID STIMULATING HORMONE 0.348 uIU/ML (0.358-3.740); TOTAL PROTEIN 6.5 GM/DL (6.4-8.2); TRIGLYCERIDES LEVEL 134 MG/DL (<150)
[2021-08-13 20:33] LABS: CREATININE, URINE 61.1 MG/DL; MALB URINE SIEMENS 9.9 MG/L; MAU/CREAT RATIO 16.2 MCG/MG (0.0-30.0)
[2021-08-13 21:48] LABS: VITAMIN B12 LEVEL 272 PG/ML (247-911)
[2021-08-13 22:21] LABS: HEMOGLOBIN A1c 6.7 %
== END ==
LOC: M WUC 10:58
PROVIDERS: ATTEND Internal Medicine
DX: E11.65 Type 2 diabetes mellitus with hyperglycemia (principal); E78.49 Other hyperlipidemia; G89.4 Chronic pain syndrome; R33.8 Other retention of urine; R94.6 Abnormal results of thyroid function studies

== ENCOUNTER → 2021-08-15 | Outpatient (CLI) | payer BC | LOC: M WHC 13:04 | PROVIDERS: ATTEND Internal Medicine | DX: R33.8 Other retention of urine (principal); Z87.442 Personal history of urinary calculi; N20.0 Calculus of kidney ==

== ENCOUNTER 2023-10-04 22:39 | Emergency (ER) | payer BC ==
[~2023-10-04] VITALS: Ht 177.8 cm; Wt 92.5 kg
[~2023-10-04 22:39] MED LIST changes: +FLUO-365 PO; -FLUO20CA22 PO
[2023-10-05 01:10] VITALS: O2SAT 98
[2023-10-05 02:15] LABS: APPEARANCE, URINE CLOUDY (CLEAR); BACTERIA, URINE AUTO NEGATIVE (NEGATIVE); BILIRUBIN, URINE AUTO NEGATIVE (NEGATIVE); BLOOD, URINE BLOOD 3+ (NEGATIVE); COLOR, URINE AMBER (YELLOW); GLUCOSE, URINE (UA) AUTO 3+ mg/dL (NEGATIVE); KETONE, URINE AUTO 1+ mg/dL (NEGATIVE); LEUKOCYTE ESTERASE, URINE AUTO TRACE (NEGATIVE); MUCUS, URINE SMALL (NEGATIVE); NITRITE, URINE AUTO NEGATIVE (NEGATIVE); PROTEIN, URINE AUTO 2+ mg/dL (NEGATIVE); RBC, URINE AUTO TNTC /HPF (0-3); SPECIFIC GRAVITY URINE AUTO 1.043 (1.002-1.035); SQUAMOUS EPITHELIAL CELL UR AU 1 /HPF (0-6); UROBILINOGEN, URINE AUTO 0.2 mg/dL (0.0-2.0); WBC, URINE AUTO 100 /HPF (0-3)
[2023-10-05] MEDS: NS 1,000 ML IV ONE (03:00)
[2023-10-05 03:45] LABS: HEMATOCRIT 45.1 % (42.0-52.0); HEMOGLOBIN 14.7 g/dl (13.5-17.5); MEAN CORPUSCULAR HEMOGLOBIN 28.8 pg (27.0-33.0); MEAN CORPUSCULAR HGB CONC 32.6 g/dl (32.0-36.5); MEAN CORPUSCULAR VOLUME 88.3 fl (80.0-96.0); PLATELET COUNT, AUTOMATED 278 10^3/uL (150-450); RED BLOOD COUNT 5.11 10^6/uL (4.30-6.10); WHITE BLOOD COUNT 11.9 10^3/uL (4.0-10.0)
[2023-10-05 03:55] LABS: INR 1.02; PARTIAL THROMBOPLASTIN TIME 28.3 SECONDS (24.8-34.2); PROTHROMBIN TIME 13.1 SECONDS (12.5-14.5)
[2023-10-05] MEDS: TAMSULOSIN 0.4 MG CAP PO ONE (04:03)
[2023-10-05] MEDS: KETOROLAC 30 MG/ML 1ML VIAL IV ONE (04:03)
[2023-10-05 04:14] LABS: ALBUMIN 3.3 G/DL (3.2-5.2); ALKALINE PHOSPHATASE 90 U/L (46-116); ALT/SGPT 21 U/L (7.0-40); AST/SGOT 9 U/L (<34); BILIRUBIN,DIRECT 0.1 MG/DL (<0.4); BILIRUBIN,TOTAL 0.5 MG/DL (0.3-1.2); BLOOD UREA NITROGEN 27 MG/DL (9-23); CALCIUM LEVEL 8.6 MG/DL (8.5-10.1); CARBON DIOXIDE LEVEL 25 MMOL/L (20-31); CHLORIDE LEVEL 106 MMOL/L (98-107); CREATININE FOR GFR 0.88 MG/DL (0.70-1.30); GLOMERULAR FILTRATION RATE > 60.0 (>60); GLUCOSE, FASTING 105 MG/DL (60-100); POTASSIUM SERUM 4.2 MMOL/L (3.5-5.1); SODIUM LEVEL 137 MMOL/L (136-145); TOTAL PROTEIN 6.1 G/DL (5.7-8.2)
[2023-10-05 04:28] LABS: ATYPICAL LYMPH 6 % (0-5); EOSINOPHILS 2 % (0-3); LYMPHOCYTES 48 % (16-44); MONOCYTES 9 % (0-5); NEUTROPHILS 35 % (28-66); PLATELET ESTIMATE NORMAL (NORMAL)
[2023-10-05] MEDS ORDERED: CEPH500C PO (04:30)
[2023-10-05] MEDS ORDERED: KETO10TAB PO (04:30)
[2023-10-05] MEDS ORDERED: FLOM0.4C39 PO (04:30)
[2023-10-05 04:48] VITALS: BP 117/64; TEMP 96.7
== END 2023-10-05 05:11 | disposition home or self-care (01) ==
LOC: M ED 22:39
DX: N20.0 Calculus of kidney (principal); N13.9 Obstructive and reflux uropathy, unspecified; N20.1 Calculus of ureter; I25.10 Atherosclerotic heart disease of native coronary artery without angina pectoris; E11.9 Type 2 diabetes mellitus without complications; F17.200 Nicotine dependence, unspecified, uncomplicated; Z79.82 Long term (current) use of aspirin; Z79.84 Long term (current) use of oral hypoglycemic drugs; Z79.899 Other long term (current) drug therapy
CPT/HCPCS: 74176; 80048; 80076; 81001; 83605; 85025; 85610; 85730; 86140; 87040; 93005; 96374; 99284; J1885

== ENCOUNTER → 2023-10-12 | Outpatient (REF) | payer BC ==
[~2023-10-12] MED LIST changes: +CEPH500C PO; +FLOM0.4C39 PO; +KETO10TAB PO
[2023-10-12 11:52] LABS: BASO # 0.1 10^3/uL (0.0-0.2); BASO % 0.9 % (0.0-1.0); EOS # 0.2 10^3/uL (0.0-0.5); EOS % 2.1 % (0.0-3.0); HEMATOCRIT 47.8 % (42.0-52.0); HEMOGLOBIN 15.2 g/dl (13.5-17.5); LYMPH # 2.9 10^3/uL (1.5-5.0); LYMPH % 30.2 % (24.0-44.0); MEAN CORPUSCULAR HEMOGLOBIN 28.1 pg (27.0-33.0); MEAN CORPUSCULAR HGB CONC 31.8 g/dl (32.0-36.5); MEAN CORPUSCULAR VOLUME 88.5 fl (80.0-96.0); MONO # 1.1 10^3/uL (0.0-0.8); MONO % 11.3 % (2.0-8.0); NEUTROPHILS # 5.3 10^3/uL (1.5-8.5); NEUTROPHILS % 55.3 % (36.0-66.0); PLATELET COUNT, AUTOMATED 360 10^3/uL (150-450); WHITE BLOOD COUNT 9.6 10^3/uL (4.0-10.0)
[2023-10-12 12:25] LABS: BLOOD UREA NITROGEN 12 MG/DL (9-23); CALCIUM LEVEL 9.3 MG/DL (8.5-10.1); CARBON DIOXIDE LEVEL 30 MMOL/L (20-31); CHLORIDE LEVEL 103 MMOL/L (98-107); CREATININE FOR GFR 0.91 MG/DL (0.70-1.30); GLOMERULAR FILTRATION RATE > 60.0 (>60); GLUCOSE, FASTING 145 MG/DL (60-100); POTASSIUM SERUM 4.7 MMOL/L (3.5-5.1); SODIUM LEVEL 137 MMOL/L (136-145)
== END ==
LOC: M LABWUC 11:13
PROVIDERS: ATTEND Urology
DX: R31.0 Gross hematuria (principal); R39.12 Poor urinary stream; R39.11 Hesitancy of micturition

== ENCOUNTER → 2024-03-31 | Outpatient (CLI) | payer BC | LOC: M RAD 09:09 | PROVIDERS: ATTEND Internal Medicine | DX: K76.0 Fatty (change of) liver, not elsewhere classified (principal); N20.0 Calculus of kidney; R10.30 Lower abdominal pain, unspecified ==

== ENCOUNTER → 2024-04-18 | Outpatient (REF) | payer BC | LOC: M LAB REF 10:52 | DX: J20.8 Acute bronchitis due to other specified organisms (principal) ==

== ENCOUNTER 2024-06-07 17:47 | Inpatient (IN) | payer BC ==
[~2024-06-07] VITALS: Ht 180.3 cm; Wt 96.5 kg
[2024-06-07 18:28] LABS: BASO # 0.1 10^3/uL (0.0-0.2); BASO % 0.7 % (0.0-1.0); EOS # 0.2 10^3/uL (0.0-0.5); EOS % 0.9 % (0.0-3.0); HEMOGLOBIN 15.6 g/dl (13.5-17.5); LYMPH # 4.2 10^3/uL (1.5-5.0); LYMPH % 25.8 % (24.0-44.0); MEAN CORPUSCULAR HEMOGLOBIN 28.4 pg (27.0-33.0); MEAN CORPUSCULAR HGB CONC 31.8 g/dl (32.0-36.5); MEAN CORPUSCULAR VOLUME 89.1 fl (80.0-96.0); MONO # 1.5 10^3/uL (0.0-0.8); MONO % 9.2 % (2.0-8.0); NEUTROPHILS # 10.2 10^3/uL (1.5-8.5); NEUTROPHILS % 63.1 % (36.0-66.0); PLATELET COUNT, AUTOMATED 284 10^3/uL (150-450); WHITE BLOOD COUNT 16.2 10^3/uL (4.0-10.0)
[2024-06-07 18:53] LABS: LIPASE 140 U/L (12-53)
[2024-06-07 18:55] LABS: ALBUMIN 3.5 G/DL (3.2-5.2); ALKALINE PHOSPHATASE 127 U/L (40-129); ALT/SGPT 23 U/L (7.0-40); AST/SGOT < 8 U/L (<34); BILIRUBIN,DIRECT 0.2 MG/DL (<0.4); BILIRUBIN,TOTAL 0.5 MG/DL (0.3-1.2); BLOOD UREA NITROGEN 11 MG/DL (9-23); CALCIUM LEVEL 9.2 MG/DL (8.5-10.1); CARBON DIOXIDE LEVEL 30 MMOL/L (20-31); CHLORIDE LEVEL 103 MMOL/L (98-107); CREATININE FOR GFR 0.54 MG/DL (0.70-1.30); GLOMERULAR FILTRATION RATE > 60.0 (>60); GLUCOSE, FASTING 282 MG/DL (60-100); POTASSIUM SERUM 4.1 MMOL/L (3.5-5.1); SODIUM LEVEL 140 MMOL/L (136-145); TOTAL PROTEIN 6.7 G/DL (5.7-8.2)
[2024-06-07] MEDS ORDERED: ISOVUE-370 76% 100ML VIAL As Ordered ONE (21:29)
[2024-06-08] MEDS: ONDANSETRON 4MG 2ML VIAL IV ONE (00:38)
[2024-06-08] MEDS: MORPHINE 4 MG/ML 1ML VIAL IV ONE (00:39)
[2024-06-08] MEDS: NS (Normal Saline) 0.9% 1,000 ML IV ONE (00:40)
[2024-06-08] MEDS ORDERED: HYDR-3719 PO (01:26)
[2024-06-08] MEDS ORDERED: CYAN1000VL IM (01:26)
[2024-06-08] MEDS ORDERED: CLOP75TA2 PO (01:26)
[2024-06-08] MEDS ORDERED: VITA1CAP25 PO (01:26)
[2024-06-08] MEDS ORDERED: ICOS1CAP PO (01:26)
[2024-06-08] MEDS ORDERED: ADDE20TA PO (01:26)
[2024-06-08] MEDS ORDERED: CO-E100C3 PO (01:26)
[2024-06-08] MEDS ORDERED: XIGD1TAB3 PO (01:26)
[2024-06-08] MEDS ORDERED: POLY17PO18 PO (01:26)
[2024-06-08] MEDS ORDERED: LISI10TA22 PO (01:26)
[2024-06-08] MEDS ORDERED: MORP1TAB21 PO (01:26)
[2024-06-08] MEDS ORDERED: HOME MED LIST COMPLETE! XX SCH (01:30)
[2024-06-08] MEDS ORDERED: GLUCAGON INJ 1MG VIAL SC PRN (02:30)
[2024-06-08] MEDS ORDERED: GLUCOSE 4 GM CHEW PO PRN (02:30)
[2024-06-08] MEDS ORDERED: DEXTROSE 50% 50ML SYRINGE IV PRN (02:30)
[2024-06-08] MEDS ORDERED: MOM 30ML SUSPENSION UDC PO PRN (02:35)
[2024-06-08] MEDS: LR 1,000 ML IV SCH ×2 (03:18→10:35)
[2024-06-08] MEDS: MORPHINE 4 MG/ML 1ML VIAL IV PRN ×2 (03:19→13:01)
[2024-06-08] MEDS: ACETAMINOPHEN 325 MG TAB PO PRN (04:40)
[2024-06-08 06:29] LABS: HEMATOCRIT 44.5 % (42.0-52.0); HEMOGLOBIN 14.7 g/dl (13.5-17.5); MEAN CORPUSCULAR HEMOGLOBIN 28.6 pg (27.0-33.0); MEAN CORPUSCULAR VOLUME 86.6 fl (80.0-96.0); PLATELET COUNT, AUTOMATED 257 10^3/uL (150-450); RED BLOOD COUNT 5.14 10^6/uL (4.30-6.10); WHITE BLOOD COUNT 14.3 10^3/uL (4.0-10.0)
[2024-06-08 07:09] LABS: PROCALCITONIN 0.06 ng/ml
[2024-06-08 07:17] LABS: ALBUMIN 3.1 G/DL (3.2-5.2); ALKALINE PHOSPHATASE 104 U/L (40-129); ALT/SGPT 20 U/L (7.0-40); AST/SGOT < 8 U/L (<34); BILIRUBIN,TOTAL 0.8 MG/DL (0.3-1.2); BLOOD UREA NITROGEN 10 MG/DL (9-23); CALCIUM LEVEL 8.6 MG/DL (8.5-10.1); CARBON DIOXIDE LEVEL 27 MMOL/L (20-31); CHLORIDE LEVEL 103 MMOL/L (98-107); CHOLESTEROL LEVEL 150 MG/DL (<200); CHOLESTEROL RISK RATIO 3.55 (<5); CREATININE FOR GFR 0.47 MG/DL (0.70-1.30); GLOMERULAR FILTRATION RATE > 60.0 (>60); GLUCOSE, FASTING 205 MG/DL (60-100); HDL CHOLESTEROL 42.2 MG/DL (>40); NON-HDL-C 107.8 MG/DL; POTASSIUM SERUM 4.3 MMOL/L (3.5-5.1); SODIUM LEVEL 138 MMOL/L (136-145); TRIGLYCERIDES LEVEL 119 MG/DL (<150)
[2024-06-08] MEDS: ENOXAPARIN 40MG/0.4ML SYRINGE (J1650 PER 10MG) SC SCH (07:59)
[2024-06-08] MEDS: INSULIN LISPRO (NovoLOG) PER UNIT SC SCH ×2 (08:21→21:21)
[2024-06-08 09:20] LABS: LIPASE 136 U/L (12-53)
[2024-06-08] MEDS: PANTOPRAZOLE 40MG VIAL IV SCH (13:00)
[2024-06-08] MEDS: KETOROLAC 30 MG/ML 1ML VIAL IV ONE (17:21)
[2024-06-08] MEDS: LanTUS (INSULIN GLARGINE INJ) 1 UNITS/0.01 ML SC SCH (21:21)
[2024-06-08 21:22] VITALS: BP 124/75
[2024-06-08] MEDS: CLOPIDOGREL 75 MG TAB PO SCH (21:22)
[2024-06-08] MEDS: NORCO, ANEXSIA 5/325MG TABLET (HYDROcodone/ACETAMINOPHEN) PO PRN (21:22)
[2024-06-08] MEDS: MORPHINE SULFATE TAB EXT REL 30 MG PO SCH (21:23)
[2024-06-08] MEDS: ATORVASTATIN 20 MG TAB PO SCH (21:23)
[2024-06-09 00:44] VITALS: BP 127/83; TEMP 97.7; O2SAT 97
[2024-06-09 02:00] VITALS: BP 131/82; TEMP 97.3; O2SAT 94
[2024-06-09 08:06] LABS: BASO # 0.1 10^3/uL (0.0-0.2); BASO % 0.7 % (0.0-1.0); EOS # 0.3 10^3/uL (0.0-0.5); EOS % 2.1 % (0.0-3.0); HEMATOCRIT 44.6 % (42.0-52.0); HEMOGLOBIN 14.9 g/dl (13.5-17.5); LYMPH # 3.4 10^3/uL (1.5-5.0); LYMPH % 27.9 % (24.0-44.0); MEAN CORPUSCULAR HEMOGLOBIN 28.6 pg (27.0-33.0); MEAN CORPUSCULAR HGB CONC 33.4 g/dl (32.0-36.5); MEAN CORPUSCULAR VOLUME 85.6 fl (80.0-96.0); MONO # 1.2 10^3/uL (0.0-0.8); NEUTROPHILS # 7.2 10^3/uL (1.5-8.5); PLATELET COUNT, AUTOMATED 258 10^3/uL (150-450); RED BLOOD COUNT 5.21 10^6/uL (4.30-6.10); WHITE BLOOD COUNT 12.3 10^3/uL (4.0-10.0)
[2024-06-09 08:34] LABS: BLOOD UREA NITROGEN 10 MG/DL (9-23); CALCIUM LEVEL 8.9 MG/DL (8.5-10.1); CARBON DIOXIDE LEVEL 28 MMOL/L (20-31); CHLORIDE LEVEL 107 MMOL/L (98-107); CREATININE FOR GFR 0.53 MG/DL (0.70-1.30); GLOMERULAR FILTRATION RATE > 60.0 (>60); GLUCOSE, FASTING 170 MG/DL (60-100); POTASSIUM SERUM 4.3 MMOL/L (3.5-5.1); SODIUM LEVEL 142 MMOL/L (136-145)
[2024-06-09] MEDS ORDERED: OMEP40CA4 PO (11:36)
== END 2024-06-09 12:30 | disposition home or self-care (01) | DRG 282 ==
LOC: M ED 17:47 → M ED INP 06-08 02:31 → M MS5PR 06-09 00:44
PROVIDERS: ADMIT Family Medicine; ATTEND Family Medicine
DX: K85.90 Acute pancreatitis without necrosis or infection, unspecified (principal); I10 Essential (primary) hypertension; I25.10 Atherosclerotic heart disease of native coronary artery without angina pectoris; E11.9 Type 2 diabetes mellitus without complications; E78.5 Hyperlipidemia, unspecified; F17.210 Nicotine dependence, cigarettes, uncomplicated; N20.0 Calculus of kidney; G89.4 Chronic pain syndrome; M48.061 Spinal stenosis, lumbar region without neurogenic claudication; Z95.5 Presence of coronary angioplasty implant and graft; Z79.84 Long term (current) use of oral hypoglycemic drugs; Z79.899 Other long term (current) drug therapy; Z79.02 Long term (current) use of antithrombotics/antiplatelets